=== PATIENT | female | born 1950 | race Two or more races ===

== ENCOUNTER → 2017-06-25 07:16 | Outpatient (CLI) | payer OTHER ==
[~2017-06-25 07:16] MED LIST: ALBUTEROL0.63 MG/3; CORTISONE25 MG; KETO10TA2; NABUMETONE500 MG PO; PERCOCET 5/3251 TAB PO; PRILOSEC20 MG PO; SYNTHROID100 MCG PO; SYNTHROID88 MCG PO
== END | disposition home or self-care (01) ==
LOC: LAB 07:16
DX: Z00.00 Encounter for general adult medical examination without abnormal findings (principal)

== ENCOUNTER → 2017-06-25 15:52 | Outpatient (CLI) | payer OTHER | END | disposition home or self-care (01) | LOC: LAB 15:52 | DX: M11.261 Other chondrocalcinosis, right knee (principal); M17.11 Unilateral primary osteoarthritis, right knee; M25.461 Effusion, right knee ==

== ENCOUNTER 2017-07-01 06:26 | Emergency (ER) | payer OTHER ==
[~2017-07-01] VITALS: Ht 162.6 cm; Wt 61.2 kg
[~2017-07-01 06:26] MED LIST changes: -ALBUTEROL0.63 MG/3; -CORTISONE25 MG; -KETO10TA2
[2017-07-01] MEDS ORDERED: CORTISONE25 MG (06:36)
[2017-07-01] MEDS ORDERED: ALBUTEROL0.63 MG/3 (06:37)
[2017-07-01] MEDS ORDERED: KETO10TA2 (06:37)
== END 2017-07-01 13:19 | disposition home or self-care (01) ==
LOC: ER 06:26
DX: M10.072 Idiopathic gout, left ankle and foot (principal)

== ENCOUNTER 2017-07-15 09:46 | Outpatient (CLI) | payer OTHER ==
[~2017-07-15 09:46] MED LIST changes: +ALBUTEROL0.63 MG/3; +CORTISONE25 MG; +KETO10TA2
== END 2017-07-15 09:51 | disposition home or self-care (01) ==
LOC: LAB 09:46
DX: D72.829 Elevated white blood cell count, unspecified (principal); Z82.62 Family history of osteoporosis; D51.0 Vitamin B12 deficiency anemia due to intrinsic factor deficiency; M79.7 Fibromyalgia

== ENCOUNTER 2017-07-16 16:50 | Inpatient (IN) | payer OTHER ==
[~2017-07-16] VITALS: Ht 157.5 cm; Wt 58.1 kg
== END 2017-07-20 13:39 | disposition home or self-care (01) | DRG 602 ==
LOC: ER 16:50 → MEDI 07-17 10:33 → SEC-K 07-17 10:33 → MEDI 07-17 15:40
PROC: BQ3HYZZ Magnetic Resonance Imaging (MRI) of Left Ankle using Other Contrast (ICD-10-PCS; principal; 2017-07-17)
PROC: B246ZZZ Ultrasonography of Right and Left Heart (ICD-10-PCS; 2017-07-18)
DX: L03.116 Cellulitis of left lower limb (principal); B39.1 Chronic pulmonary histoplasmosis capsulati; M11.261 Other chondrocalcinosis, right knee; E03.8 Other specified hypothyroidism; E78.00 Pure hypercholesterolemia, unspecified; M11.272 Other chondrocalcinosis, left ankle and foot; D64.89 Other specified anemias

== ENCOUNTER → 2017-12-08 | Outpatient (CLI) | payer OTHER | END | disposition home or self-care (01) | LOC: RAD 15:50 | DX: M75.81 Other shoulder lesions, right shoulder (principal); M54.2 Cervicalgia ==

== ENCOUNTER 2017-12-17 16:06 | Outpatient (CLI) | payer OTHER | END 2017-12-17 16:09 | disposition home or self-care (01) | LOC: RAD 16:06 | DX: R07.89 Other chest pain (principal) ==

== ENCOUNTER 2019-01-25 13:12 | Emergency (ER) | payer OTHER ==
[~2019-01-25] VITALS: Ht 160 cm; Wt 59.9 kg
[2019-01-25] MEDS ORDERED: HYDROCHLOROTHIA50 MG PO (13:41)
== END 2019-01-25 15:30 | disposition home or self-care (01) ==
LOC: ER 13:12
DX: R42 Dizziness and giddiness (principal)

== ENCOUNTER 2019-07-04 01:44 | Inpatient (IN) | payer OTHER ==
[~2019-07-04] VITALS: Ht 160 cm; Wt 68.0 kg
[~2019-07-04 01:44] MED LIST changes: +HYDROCHLOROTHIA50 MG PO
[2019-07-04] MEDS ORDERED: TUSSIN15 MG/5 M1 (02:17)
[2019-07-04] MEDS ORDERED: FLOVENT HFA10.6 GM (02:17)
[2019-07-04] MEDS ORDERED: ZYRTEC10 M3 (02:17)
[2019-07-04] MEDS ORDERED: FLUCONAZOL100 MG/50 (02:18)
== END 2019-07-08 13:01 | disposition home or self-care (01) | DRG 194 ==
LOC: ER 01:44 → MEDJ 13:19 → SURH 13:19
PROVIDERS: ADMIT Internal Medicine
PROC: 3E0F7GC Introduction of Other Therapeutic Substance into Respiratory Tract, Via Natural or Artificial Opening (ICD-10-PCS; principal; 2019-07-04)
PROC: 4A033R1 Measurement of Arterial Saturation, Peripheral, Percutaneous Approach (ICD-10-PCS; 2019-07-04)
PROC: 8E0ZXY6 Isolation (ICD-10-PCS; 2019-07-04)
DX: J10.1 Influenza due to other identified influenza virus with other respiratory manifestations (principal); J44.1 Chronic obstructive pulmonary disease with (acute) exacerbation; J45.41 Moderate persistent asthma with (acute) exacerbation; E03.8 Other specified hypothyroidism

== ENCOUNTER 2020-07-17 06:49 | Outpatient (CLI) | payer OTHER ==
[~2020-07-17 06:49] MED LIST changes: +FLOVENT HFA10.6 GM; +FLUCONAZOL100 MG/50; +TUSSIN15 MG/5 M1; +ZYRTEC10 M3
== END 2020-07-17 06:55 | disposition home or self-care (01) ==
LOC: LAB 06:49
PROVIDERS: ATTEND Internal Medicine
DX: E03.8 Other specified hypothyroidism (principal); H81.13 Benign paroxysmal vertigo, bilateral; J45.20 Mild intermittent asthma, uncomplicated; F41.1 Generalized anxiety disorder; D47.2 Monoclonal gammopathy; I11.9 Hypertensive heart disease without heart failure; K21.9 Gastro-esophageal reflux disease without esophagitis; R73.01 Impaired fasting glucose; E55.9 Vitamin D deficiency, unspecified; E78.1 Pure hyperglyceridemia

== ENCOUNTER 2020-08-29 09:04 | Outpatient (CLI) | payer OTHER | END 2020-08-29 10:18 | disposition home or self-care (01) | LOC: LAB 09:04 | PROVIDERS: ATTEND Internal Medicine | DX: Z00.00 Encounter for general adult medical examination without abnormal findings (principal) ==

== ENCOUNTER 2020-10-05 10:12 | Outpatient (CLI) | payer OTHER | END 2020-10-05 10:18 | disposition home or self-care (01) | LOC: LAB 10:12 | PROVIDERS: ATTEND Internal Medicine | DX: H81.13 Benign paroxysmal vertigo, bilateral (principal); J45.20 Mild intermittent asthma, uncomplicated; F41.1 Generalized anxiety disorder; D47.2 Monoclonal gammopathy; I11.9 Hypertensive heart disease without heart failure; K21.9 Gastro-esophageal reflux disease without esophagitis; R73.01 Impaired fasting glucose; E55.9 Vitamin D deficiency, unspecified; E03.8 Other specified hypothyroidism; E78.1 Pure hyperglyceridemia ==

== ENCOUNTER 2021-01-24 07:10 | Outpatient (CLI) | payer OTHER | END 2021-01-24 07:21 | disposition home or self-care (01) | LOC: TOM 07:10 | DX: R14.0 Abdominal distension (gaseous) (principal); Z12.11 Encounter for screening for malignant neoplasm of colon ==

== ENCOUNTER 2021-03-07 07:19 | Outpatient (CLI) | payer OTHER | END 2021-03-07 07:29 | disposition home or self-care (01) | LOC: SONOGRAMA 07:19 | PROVIDERS: ATTEND Internal Medicine | DX: E06.3 Autoimmune thyroiditis (principal); E04.2 Nontoxic multinodular goiter; R39.15 Urgency of urination; R10.30 Lower abdominal pain, unspecified ==

== ENCOUNTER 2021-03-09 08:20 | Outpatient (CLI) | payer OTHER | END 2021-03-09 08:37 | disposition home or self-care (01) | LOC: SONOGRAMA 08:20 → MAMO-SONO 09:00 | PROVIDERS: ATTEND Urology | DX: N28.89 Other specified disorders of kidney and ureter (principal); R10.2 Pelvic and perineal pain; N39.0 Urinary tract infection, site not specified ==

== ENCOUNTER 2021-03-31 02:22 | Emergency (ER) | payer OTHER ==
[~2021-03-31] VITALS: Ht 157.5 cm; Wt 57.2 kg
[2021-03-31] MEDS ORDERED: LIPITOR20 MG (02:39)
[2021-03-31] MEDS ORDERED: NORFLEX100MG PO (07:24)
[2021-03-31] MEDS ORDERED: KETO10TA2 PO (07:24)
[2021-03-31] MEDS ORDERED: MEDROLPACK PO (07:24)
== END 2021-03-31 07:59 | disposition home or self-care (01) ==
LOC: ER 02:22
DX: S33.5XXA Sprain of ligaments of lumbar spine, initial encounter (principal); M54.59 Other low back pain; V49.88XA Car occupant (driver) (passenger) injured in other specified transport accidents, initial encounter; Y93.89 Activity, other specified; Y92.488 Other paved roadways as the place of occurrence of the external cause; Y99.8 Other external cause status

== ENCOUNTER 2021-04-10 09:00 | Outpatient (CLI) | payer OTHER ==
[~2021-04-10 09:00] MED LIST changes: +KETO10TA2 PO; +LIPITOR20 MG; +MEDROLPACK PO; +NORFLEX100MG PO
== END 2021-04-10 09:30 | disposition home or self-care (01) ==
LOC: PPH VACUNA 09:00
PROVIDERS: ATTEND Emergency Medicine Pediatric Emergency Medicine
DX: Z23 Encounter for immunization (principal)

== ENCOUNTER 2021-11-19 12:20 | Outpatient (CLI) | payer OTHER | END 2021-11-19 12:30 | disposition home or self-care (01) | LOC: PPH VACUNA 12:20 | PROVIDERS: ATTEND Emergency Medicine Pediatric Emergency Medicine | DX: Z23 Encounter for immunization (principal) ==

== ENCOUNTER 2021-12-15 11:53 | Outpatient (CLI) | payer OTHER | END 2021-12-15 11:54 | disposition home or self-care (01) | LOC: LAB 11:53 | PROVIDERS: ATTEND Internal Medicine | DX: E11.65 Type 2 diabetes mellitus with hyperglycemia (principal) ==

== ENCOUNTER 2022-02-10 08:50 | Emergency (ER) | payer OTHER ==
[~2022-02-10] VITALS: Ht 160 cm; Wt 59.0 kg
== END 2022-02-10 13:08 | disposition home or self-care (01) ==
LOC: ER 08:50
DX: K57.30 Diverticulosis of large intestine without perforation or abscess without bleeding (principal); Z88.8 Allergy status to other drugs, medicaments and biological substances

== ENCOUNTER 2022-04-25 11:16 | Outpatient (CLI) | payer OTHER | END 2022-04-25 11:17 | disposition home or self-care (01) | LOC: RAD 11:16 | PROVIDERS: ATTEND Internal Medicine Rheumatology | DX: M15.8 Other polyosteoarthritis (principal); M25.562 Pain in left knee; M25.561 Pain in right knee ==

== ENCOUNTER → 2022-06-17 09:25 | Outpatient (CLI) | payer OTHER | END | disposition home or self-care (01) | LOC: LAB 09:25 | PROVIDERS: ATTEND Internal Medicine Rheumatology | DX: M79.7 Fibromyalgia (principal); E87.5 Hyperkalemia ==

== ENCOUNTER 2022-06-17 09:50 | Outpatient (CLI) | payer OTHER | END 2022-06-17 10:00 | disposition home or self-care (01) | LOC: PPH VACUNA 09:50 | PROVIDERS: ATTEND Emergency Medicine Pediatric Emergency Medicine | DX: Z23 Encounter for immunization (principal) ==

== ENCOUNTER 2022-09-05 18:09 | Emergency (ER) | payer OTHER ==
[~2022-09-05] VITALS: Ht 157.5 cm; Wt 58.1 kg
== END 2022-09-05 22:45 | disposition home or self-care (01) ==
LOC: ER 18:09
DX: K59.00 Constipation, unspecified (principal); G71.09 Other specified muscular dystrophies; Z91.041 Radiographic dye allergy status; I10 Essential (primary) hypertension

== ENCOUNTER 2022-10-17 10:46 | Emergency (ER) | payer OTHER ==
[~2022-10-17] VITALS: Ht 160 cm; Wt 56.7 kg
== END 2022-10-17 18:53 | disposition home or self-care (01) ==
LOC: ER 10:46
DX: K52.9 Noninfective gastroenteritis and colitis, unspecified (principal); K57.32 Diverticulitis of large intestine without perforation or abscess without bleeding; E78.00 Pure hypercholesterolemia, unspecified; E03.9 Hypothyroidism, unspecified; Z91.041 Radiographic dye allergy status; Z88.8 Allergy status to other drugs, medicaments and biological substances

== ENCOUNTER 2022-11-27 06:19 | Outpatient (CLI) | payer OTHER | END 2022-11-27 06:28 | disposition home or self-care (01) | LOC: LAB 06:19 | PROVIDERS: ATTEND Neurological Surgery | DX: Z01.812 Encounter for preprocedural laboratory examination (principal); Z01.811 Encounter for preprocedural respiratory examination; Z01.810 Encounter for preprocedural cardiovascular examination; M48.062 Spinal stenosis, lumbar region with neurogenic claudication; D68.8 Other specified coagulation defects; I10 Essential (primary) hypertension ==

== ENCOUNTER 2023-01-07 06:16 | Outpatient (CLI) | payer OTHER | END 2023-01-07 06:17 | disposition home or self-care (01) | LOC: LAB 06:16 | PROVIDERS: ATTEND Internal Medicine Hematology & Oncology | DX: D50.8 Other iron deficiency anemias (principal); R79.9 Abnormal finding of blood chemistry, unspecified; I10 Essential (primary) hypertension; R74.02 Elevation of levels of lactic acid dehydrogenase [LDH]; K76.89 Other specified diseases of liver; D51.8 Other vitamin B12 deficiency anemias; D47.2 Monoclonal gammopathy; E03.8 Other specified hypothyroidism; E78.2 Mixed hyperlipidemia ==

== ENCOUNTER → 2023-03-16 | Emergency (ER) | payer OTHER ==
[~2023-03-16] VITALS: Ht 157.5 cm; Wt 57.6 kg
== END | disposition home or self-care (01) ==
LOC: ER 20:23
DX: Z53.21 Procedure and treatment not carried out due to patient leaving prior to being seen by health care provider (principal)

== ENCOUNTER 2023-04-22 13:00 | Outpatient (CLI) | payer OTHER | END 2023-04-22 13:26 | disposition home or self-care (01) | LOC: TOM 13:00 | PROVIDERS: ATTEND Internal Medicine Pulmonary Disease | DX: R91.8 Other nonspecific abnormal finding of lung field (principal) ==

== ENCOUNTER 2023-04-29 07:09 | Outpatient (CLI) | payer OTHER | END 2023-04-29 07:24 | disposition home or self-care (01) | LOC: MRI 07:09 | PROVIDERS: ATTEND Internal Medicine Hematology & Oncology | DX: D47.2 Monoclonal gammopathy (principal); E03.8 Other specified hypothyroidism; E78.2 Mixed hyperlipidemia; D51.3 Other dietary vitamin B12 deficiency anemia; D11.0 Benign neoplasm of parotid gland; Z16.23 Resistance to quinolones and fluoroquinolones; Z88.6 Allergy status to analgesic agent; Z88.8 Allergy status to other drugs, medicaments and biological substances; Z91.041 Radiographic dye allergy status | CPT/HCPCS: 70543; 70552; 70553; Q9965; 70542; 70548 ==